=== PATIENT | male | born 1950 | race Caucasian/White ===

== ENCOUNTER → 2019-04-02 | Outpatient (CLI) | payer MEDICARE, OTHER ==
--- NOTE | 2019-04-02 11:42 | Diagnostic Imaging Report ---
INDICATION: Pre-MRI screening. Time of exam: 11:21 AM IMPRESSION: No radiopaque orbital foreign bodies are detected. Dictated by: Dictated on workstation # [id number]
== END ==
LOC: RAD 11:26
PROVIDERS: ATTEND Family Medicine
DX: T15.92XA Foreign body on external eye, part unspecified, left eye, initial encounter (principal); T15.91XA Foreign body on external eye, part unspecified, right eye, initial encounter

== ENCOUNTER → 2019-04-02 | Outpatient (CLI) | payer MEDICARE, OTHER ==
--- NOTE | 2019-04-02 12:53 | Diagnostic Imaging Report ---
INDICATION: Chronic back pain. TECHNIQUE: Multiplanar and multisequence acquisitions were acquired through the thoracic spine without the use of gadolinium. FINDINGS: The alignment of the thoracic spine is normal. The vertebral body heights are well-maintained. There is no fracture or traumatic subluxation. The visualized portions of the spinal cord are normal in signal intensity and morphology. There is some degenerative disc disease at T9-10 where there are Modic changes in the endplates. There is effacement of the ventral thecal sac and moderate left neural foraminal encroachment. At T8-9 there is also some annular bulging with slight effacement of the ventral thecal sac. There is no other focal disc extrusion or high-grade spinal stenosis. There are no other focal soft tissue abnormalities. IMPRESSION: 1. Degenerative disc disease at T8-9 and T9-10 as described. 2. No acute fracture or traumatic subluxation. Dictated by: Dictated on workstation # [id number]
--- NOTE | 2019-04-02 12:55 | Diagnostic Imaging Report ---
CLINICAL INDICATION: Patient with chronic spine pain. EXAM: MRI of the lumbar spine performed without IV contrast. Sagittal T2, sagittal T1, sagittal T2 fat-sat, and axial T2. COMPARISON: None. FINDINGS: Lumbar spine has normal alignment with no acute fracture or dislocation. There is mild straightening of the lumbar spine posture. The visualized portions of the distal thoracic spinal cord, conus medullaris, and cauda equina nerve roots are unremarkable. The conus medullaris tip is seen at the lower L1 vertebral body level. There is no significant paraspinal soft tissue abnormality. There are hypertrophic spurs seen throughout the lumbar spine and facet arthropathy. L1-L2: There is a diffuse disc bulge with moderate loss of intervertebral disc height. There is moderate bilateral facet arthropathy. There is no significant central canal or neural foramen narrowing. L2-L3: There is a diffuse disc bulge with moderate loss of intervertebral disc height and mild bilateral facet arthropathy. There is mild central canal narrowing, mild to moderate left neural foramen narrowing and mild right neural foramen narrowing. L3-L4: There is diffuse disc bulge with mild to moderate loss of intervertebral disc height. There is moderate bilateral facet arthropathy. There is no significant central canal narrowing. There is mild right neural foramen narrowing and mild left neural foramen narrowing. L4-L5: There is a diffuse disc bulge with superimposed broad left subarticular/foraminal disc extrusion/herniation. There is moderate loss of intervertebral disc height. There is moderate bilateral facet arthropathy and ligamentum flavum buckling. There is mild central canal narrowing. There is concern for encroachment upon the non-exited left L5 nerve roots. There is severe bilateral neural foramen narrowing. L5-S1: There is a small broad posterior disc bulge and mild right facet arthropathy and moderate left facet arthropathy. There is moderate right neural foramen narrowing and mild to moderate left neural foramen narrowing. There is no significant central canal narrowing. IMPRESSION: 1: There is multilevel lumbar spine degenerative disease with multilevel disc bulges, facet arthropathy and disc spurs, which is described in detail above. 2: There is an L4-L5 diffuse disc bulge with broad left subarticular/foraminal disc extrusion/herniation which causes mild central canal narrowing, severe bilateral neural foramen narrowing, and concern for encroachment upon the non-exited left L5 nerve root. Dictated by: Dictated on workstation # [id number]
--- NOTE | 2019-04-02 13:25 | Diagnostic Imaging Report ---
PROCEDURE: MR imaging cervical spine without contrast. TECHNIQUE: Multiplanar, multisequence MR imaging of the cervical spine was performed without contrast. INDICATION: Chronic neck pain. FINDINGS: The alignment of the cervical spine is normal. The vertebral body heights are well-maintained. The prevertebral soft tissues are within normal limits. Posterior fossa is unremarkable. The visualized portions of the spinal cord are normal in signal intensity and morphology. At C2-C3 there is no spinal or neural foraminal encroachment. At C3-C4 there is bilateral uncovertebral joint hypertrophy with at least moderate bilateral neural foraminal encroachment. At C4-C5 there is minimal annular bulging and mild bilateral uncovertebral joint hypertrophy. There is slight effacement of the ventral thecal sac and mild bilateral neural foraminal encroachment. At C5-C6 there is loss of disc height and signal intensity. There are degenerative changes in the endplates. There is annular bulging and bilateral uncovertebral joint hypertrophy. There is moderate spinal stenosis and moderate bilateral neural foraminal encroachment right greater than left. At C6-C7 there is some annular bulging and mild left uncovertebral joint hypertrophy. There is mild spinal stenosis and mild left neural foraminal encroachment. At C7-T1 there is no significant spinal or neural foraminal encroachment. IMPRESSION: Diffuse cervical spondylosis and multilevel degenerative disc disease as described. Dictated by: Dictated on workstation # [id number]
== END ==
LOC: RAD 04-01 14:33
PROVIDERS: ATTEND Family Medicine
DX: M51.34 Other intervertebral disc degeneration, thoracic region (principal); M47.812 Spondylosis without myelopathy or radiculopathy, cervical region; M50.30 Other cervical disc degeneration, unspecified cervical region; M50.221 Other cervical disc displacement at C4-C5 level; M48.02 Spinal stenosis, cervical region; M47.816 Spondylosis without myelopathy or radiculopathy, lumbar region; M51.26 Other intervertebral disc displacement, lumbar region; M46.96 Unspecified inflammatory spondylopathy, lumbar region; M48.07 Spinal stenosis, lumbosacral region; M51.36 Other intervertebral disc degeneration, lumbar region
CPT/HCPCS: 72141; 72146; 72148

== ENCOUNTER → 2019-08-12 | Outpatient (CLI) | payer MEDICARE, OTHER ==
--- NOTE | 2019-08-12 12:29 | Diagnostic Imaging Report ---
EXAMINATION: CT Abdomen Pelvis without contrast. TECHNIQUE: Multiple contiguous axial images were obtained through the abdomen and pelvis without the use of intravenous contrast. All CT scans use one or more of the following dose optimizing techniques: automated exposure control, MA and/or KvP adjustment based on a patient size and exam type, or iterative reconstruction. HISTORY: Prostate cancer. COMPARISON: None available. FINDINGS: Limited views of the lower thorax are unremarkable. The liver is normal without focal lesion. There is no biliary ductal dilation. Gallbladder is surgically absent. Pancreas is normal. Spleen is normal. Adrenal glands are normal. The kidneys are normal. There is no hydronephrosis. Urinary bladder is normal. There are no dilated loops of large or small bowel. No obstruction or inflammation. No free fluid or air. No abdominal or pelvic lymphadenopathy. Aorta is normal in caliber without aneurysm. There are no suspicious osseous lesions. IMPRESSION: 1. No metastatic disease identified in the abdomen or pelvis. Dictated by: Dictated on workstation # [id number]
--- NOTE | 2019-08-12 16:02 | Diagnostic Imaging Report ---
INDICATION: Prostate carcinoma, newly diagnosed. TECHNIQUE: Patient was administered 27.1 mCi technetium 99m MDP intravenously and whole body imaging was performed after a three-hour delay. COMPARISON: No prior bone scans are available for comparison. FINDINGS: There is normal uptake of activity by the axial and appendicular skeleton. There is uptake by both kidneys with excretion into the urinary bladder. There is a focus of uptake involving the lower thoracic spine, approximately T10. This may be degenerative. There are two subtle foci of uptake involving right-sided posterior ribs, approximately the seventh and eighth posterior ribs on the right. This is indeterminate. No other suspicious foci are seen. There are probable degenerative changes of the right ankle. IMPRESSION: Uptake in the lower thoracic spine as well as right-sided posterior ribs, indeterminate. Uptake in the thoracic spine is likely degenerative. Uptake in the right ribs could be post traumatic but small metastatic lesions cannot be entirely excluded and continued follow-up is recommended. Dictated by: Dictated on workstation # [id number]
== END ==
LOC: CARD 11:25
PROVIDERS: ATTEND Urology
DX: C61 Malignant neoplasm of prostate (principal)
CPT/HCPCS: 74176; 78306

== ENCOUNTER 2022-03-20 18:51 | Emergency (ER) | payer MEDICARE, OTHER ==
[2022-03-20] MEDS ORDERED: CYCLOBENZAPRINE 10 MG (FLEXERIL) TAB PO STA (19:06)
[2022-03-20] MEDS ORDERED: CYCL10TA25 PO (19:06)
[2022-03-20] MEDS ORDERED: ACET-2267 PO (19:06)
--- NOTE | 2022-03-20 19:06 | ED Fever ---
History of Present Illness General Stated Complaint: BODY ACHES Source: patient Exam Limitations: no limitations History of Present Illness Date Seen by Provider: Mar 20, 2022 Time Seen by Provider: 18:53 Initial Comments 71-year-old male with past medical history of diabetes and hypertension coming in with known COVID with body aches. Symptoms began Sunday night, tested positive , was started on Paxlovid which she has 1 dose left. Has had general body aches, elevated temperature, and cough. Had aspirin today but no Tylenol. He says he cannot take ibuprofen due to ulcers. Denies any vomiting, diarrhea, chest pain, shortness of breath, abdominal pain, weakness, numbness, rash, neck stiffness, or any other concerns. Allergies and Home Medications Allergies Coded Allergies: Ibuprofen (Verified Allergy, 03/20/22) Patient Home Medication List Home Medication List Reviewed: Yes Review of Systems Review of Systems Constitutional: chills, fever, malaise EENTM: No blurred vision Respiratory: cough Cardiovascular: No chest pain Gastrointestinal: no symptoms reported Genitourinary: no symptoms reported Musculoskeletal: muscle pain Skin: no symptoms reported Psychiatric/Neurological: No Symptoms Reported Hematologic/Lymphatic: No Symptoms Reported Immunological/Allergic: no symptoms reported All Other Systems Reviewed Negative Unless Noted: Yes Past Zevdpid-Tcztge-Cykjiv Hx Patient Social History Tobacco Use?: No Substance use?: No Alcohol Use?: No Past Medical History Surgeries: No Physical Exam Capillary Refill : Height: '" Weight: lbs. oz. kg; BMI Method: General Appearance: WD/WN, no apparent distress Eyes: Bilateral Eye Normal Inspection HEENT: PERRL/EOMI, normal ENT inspection, pharynx normal Neck: full range of motion, supple, normal inspection, other (No meningismus, tender along the insertions of the traps) Respiratory: chest non-tender, lungs clear, normal breath sounds, no respiratory distress, no accessory muscle use Cardiovascular: regular rate, rhythm, no edema, no murmur Gastrointestinal: normal bowel sounds, non tender, soft; No distended, No guarding, No rebound Extremities: normal range of motion, non-tender, normal inspection, no pedal edema, no calf tenderness, normal capillary refill Neurologic/Psychiatric: no motor/sensory deficits, alert, normal mood/affect Skin: normal color, warm/dry Lymphatic: no adenopathy Progress/Results/Core Measures Suspected Sepsis SIRS Temperature: Pulse: Respiratory Rate: Blood Pressure / Mean: Results/Orders Vital Signs/I&O Capillary Refill : Progress Note : Progress Note 71-year-old male with above history coming in due to muscle soreness in the setting of being COVID-positive. ABCs were intact and vitals were stable on presentation. Physical exam with tenderness most notably along his bilateral trapezius muscles. He has had aspirin today, we will add Tylenol and a muscle relaxer to see if that helps. No meningismus here. Vitals otherwise look well and he is well-appearing. I believe he is stable for discharge with outpatient follow-up. He was sent home with strict return precautions. Departure Impression Primary Impression: COVID-19 Additional Impression: Body aches Disposition: HOME, SELF-CARE Condition: Stable Departure-Patient Inst. Decision time for Depature: 19:05 Referrals: BRANDO VALDIVIA APRN (PCP/Family) Primary Care Physician Patient Instructions: COVID-19 (DC) Add. Discharge Instructions: Schedule Tylenol, 1000 mg every 6 hours. You can take the muscle relaxer as well as needed. You can also try things such as a heating pad. Typically this starts getting better after a week or so. Scripts Cyclobenzaprine HCl (Cyclobenzaprine HCl) 10 Mg Tablet 10 MG PO Q8H PRN for SPASMS for 5 Days, #15 TAB 0 Refills Prov: BISHOP BOND MD 03/20/22 Acetaminophen (Tylenol Extra Strength) 500 Mg Tablet 1000 MG PO Q6H for 7 Days, #56 TAB Prov: BISHOP BOND MD 03/20/22 Work/School Note: Work Release Form Date Seen in the Emergency Department: Mar 20, 2022 Return to Work: Mar 22, 2022 Restrictions: Return-No Fever (24hrs) BISHOP BOND MD Mar 20, 2022 19:06
[2022-03-20 19:14] VITALS: BP 164/73
[2022-03-20] MEDS ORDERED: ACETAMINOPHEN 500 MG TAB (TYLENOL) PO ONE (19:15)
== END 2022-03-20 19:15 | disposition home or self-care (01) ==
LOC: EDUNIT# 18:51 → ER FS 18:53
DX: U07.1 COVID-19 (principal); Z73.0 Burn-out
CPT/HCPCS: 99283

== ENCOUNTER → 2022-08-01 | Outpatient (CLI) | payer MEDICARE, OTHER ==
[~2022-08-01] MED LIST: ACET-2267 PO; CYCL10TA25 PO
--- NOTE | 2022-08-01 11:26 | Diagnostic Imaging Report ---
PROCEDURE: MR imaging cervical spine without contrast. TECHNIQUE: Multiplanar, multisequence MR imaging of the cervical spine was performed without contrast. INDICATION: Neck pain. COMPARISON: MRI cervical spine 04/02/2019. FINDINGS: Normal alignment. Vertebral body heights are preserved. Normal bone marrow signal. No abnormal signal in the cervical spinal cord. The visualized paravertebral soft tissues are unremarkable. C2-C3: Normal. C3-C4: Uncovertebral and facet arthropathy result in moderate bilateral neural foraminal narrowing. Mild spinal canal narrowing. C4-C5: Uncovertebral and facet arthropathy result in [id number] bilateral neural foraminal narrowing. There is increased fluid in the right facet joint. No spinal canal narrowing. C5-C6: Uncovertebral and facet arthropathy result in moderate to severe bilateral neural foraminal narrowing. Central disc protrusion results in mild spinal canal narrowing. C6-C7: Central disc protrusion results in [id number] spinal canal stenosis. Facet arthropathy also contribute to severe left and moderate right neural foraminal narrowing. C7-T1: Broad-based disc bulging results in mild spinal canal narrowing. Uncovertebral joint hypertrophy contributes to moderate to severe left neural foraminal narrowing. IMPRESSION: 1. There has been some interval progression of spondylotic changes with moderate spinal canal stenosis at C6-C7. 2. Scattered high-grade neural foraminal narrowing detailed above level by level. 3. There is increasing fluid in the right C4-C5 facet joint which may be a local pain generator. 4. No abnormal signal in the cervical spinal cord. Dictated by: Dictated on workstation # [id number]
== END ==
LOC: RAD 10:15
PROVIDERS: ATTEND Nurse Practitioner Family
DX: M47.812 Spondylosis without myelopathy or radiculopathy, cervical region (principal); M48.02 Spinal stenosis, cervical region
CPT/HCPCS: 72141